=== PATIENT | female | born 1940 | race Caucasian/White ===

== ENCOUNTER 2016-11-30 09:42 | Observation (INO) ==
--- NOTE | 2016-11-30 09:55 | Emergency Department Note ---
Disposition Clinical Impression: Biliary colic, Acalculous cholecystitis Abdominal pain Qualifiers: Abdominal location: right upper quadrant Qualified Code(s): R10.11 - Right upper quadrant pain Disposition: Admitted As Inpatient Condition: Fair Time of Disposition: 13:44 Abdominal Pain HPI - General Chief Complaint: ED Abdominal Pain Stated Complaint: RLQ Pain Time Seen by Provider: 11/30/16 09:47 Source: patient, family Nursing Notes Reviewed: Yes Vital Signs Reviewed: Yes - History of Present Illness HPI Narrative: Patient is a 76-year-old female who presents to [facility] ED with a chief complaint of right upper quadrant abdominal pain. States her symptoms started around 5 AM this morning. She did have an episode of nausea with vomiting this morning. States she has not had anything to eat yet. No history of problems with her gallbladder though she states she is only one in her family with one still. Denies any fevers or chills. No chest pain, shortness of breath, problems with urination or bowel movements. Past medical history significant for atrial fibrillation on xarelto, hypertension, hyperlipidemia. Pt Subjective Complaint: abdominal pain Onset (ago): hour(s) Consistency: constant Location: RUQ Pain Severity: severe Pain Scale: 9 Quality: stabbing, aching Radiation: none Migration to: no migration Improves with: nothing Worsens with: nothing Associated symptoms: Reports: nausea, vomiting. Denies: fever, chills, constipation, dysuria Treatments prior to arrival: none - Related Data Home Medications Medication Instructions Recorded Confirmed Fenofibrate,Micronized 134 mg PO DAILY 11/18/16 11/30/16 [Fenofibrate] Insulin Glargine,Hum.rec.anlog 10 - 20 unit SQ HS 11/18/16 11/30/16 [Lantus Solostar] Sitagliptin Phos/Metformin HCl 1 tab PO BID 11/18/16 11/30/16 [Janumet Xr 50-1,000 mg Tablet] Levothyroxine [Levothyroxine 137 mcg PO DAILY 11/30/16 11/30/16 Sodium] Magnesium 750 mg PO HS 11/30/16 11/30/16 Rivaroxaban [Xarelto] 20 mg PO DAILY 11/30/16 11/30/16 Previous Rx's Medication Instructions Recorded Diltiazem CD (24hr) [Cardizem CD] 120 mg PO DAILY #30 cap.er.24h 11/19/16 Furosemide [Lasix] 20 mg PO DAILY #30 tablet 11/19/16 Gabapentin [Neurontin] 300 mg PO HS #30 capsule 11/19/16 Metoprolol XL (24 HR) Succ [Toprol 100 mg PO DAILY #60 tab.er.24h 11/19/16 Xl] Allergies Allergy/AdvReac Type Severity Reaction Status Date / Time Oxycodone Allergy Rash Verified 11/18/16 10:07 rosuvastatin [From Crestor] AdvReac Muscle Pain Verified 11/18/16 10:07 All systems ED: reviewed and negative except as stated. Abdominal Pain PMH - Past Medical History Medical history: Reports: atrial fibrillation, CHF, diabetes, hyperlipidemia, hypertension, other Female Surgical History: Reports: appendectomy, hip replacement, hysterectomy Psychiatric history: Reports: no psych history - Social History Smoking status: Never smoker Alcohol use: Reports: none Drug use: Reports: none Physical Exam - General Limitations: no limitations General appearance: alert, in no apparent distress - Head Head exam: atraumatic, normocephalic, normal inspection - Eye Eye exam: Present: normal appearance, PERRL, EOMI - ENT ENT exam: normal exam, normal oropharynx, mucous membranes moist - Neck Neck exam: Present: normal inspection, full ROM, trachea midline - Chest Chest inspection: Present: normal inspection, symmetric chest wall rise - Respiratory Respiratory exam: Present: normal lung sounds bilaterally - Cardiovascular Cardiovascular exam: Present: regular rate, normal rhythm, normal heart sounds - Abdominal Exam Abdominal exam: Present: soft, tenderness, normal bowel sounds, Gramajo's sign. Absent: distention, guarding, rebound, rigidity Abdominal tenderness: Present: RUQ, diffuse - Extremities Exam Extremities exam: Present: normal inspection, full ROM. Absent: tenderness, pedal edema - Back Exam Back exam: Present: normal inspection, full ROM. Absent: tenderness - Neurological Exam Neurological exam: Present: alert, oriented X3 - Psychiatric Psychiatric exam: Present: normal affect, normal mood - Skin Skin exam: Present: warm, dry, intact, normal color Course Course Narrative: Patient seen and examined. Right upper quadrant abdominal pain since this morning. Bedside ultrasound shows a distended gallbladder though no signs of stones, wall thickness or pericholecystic fluid. Patient had a positive Gramajo' s sign. Will get abdominal labs, CT abdomen and pelvis with IV contrast, pain control with IV Dilaudid and IV Zofran for nausea control. - Reevaluation(s) Reevaluation #1: Patient states she is feeling much better. Her lab work does show a mild leukocytosis with a left shift as well as some elevated liver function tests. Her CAT scan does not show any signs of acute cholecystitis. However since she did have a positive Gramajo sign and clinical suspicion for acute cholecystitis, we will go ahead and order a gallbladder ultrasound. Time: 11:59 Reevaluation #2: Gallbladder ultrasound does show wall thickening up to 8 mm as well as some sludge. They had a negative Gramajo sign. Due to patient's clinical symptoms as well as these ultrasound findings and lab work which shows mildly elevated white count with shift and mildly elevated LFTs, there is concern that this is developing into an acute cholecystitis. I spoke with the surgeon Dr. Aguilar who states he will consult on the patient but would like hospitalist to call him as well. Patient is currently anticoagulated on xarelto so this will need to be addressed prior to him thinking about operating on her. He would also like coags ordered. I spoke with hospitalist Dr. Lanier who has accepted patient for admission. Time: 13:44 Vital Signs Temperature 96.6 F L 11/30/16 09:43 Pulse Rate 76 11/30/16 09:43 Respiratory Rate 18 11/30/16 09:43 Blood Pressure 185/87 11/30/16 09:43 O2 Sat by Pulse Oximetry 98 11/30/16 09:43 Temperature 96.6 F L 11/30/16 09:43 Pulse Rate 67 11/30/16 13:05 Respiratory Rate 14 11/30/16 14:00 Blood Pressure 165/67 11/30/16 14:00 O2 Sat by Pulse Oximetry 97 11/30/16 13:05 Oxygen Delivery Oxygen Delivery Room Air Abdominal Pain - Medical Records Medical records reviewed: Yes I reviewed the patient's medical records. - Lab Data Lab results reviewed: Yes I reviewed the patient's lab results. Result diagrams: 11/30/16 10:24 11/30/16 10:24 Lab Results 11/30/16 11/30/16 11/30/16 Range/Units 10:24 10:24 10:24 WBC 11.5 H (4.3-11.1) K/mcL RBC 4.39 (3.82-4.97) M/mcL Hgb 13.1 (11.5-15.4) g/dL Hct 41.1 (35.3-44.9) % MCV 93.6 (83.0-100.0) fL MCH 29.8 (28.0-33.3) pg MCHC 31.9 (31.6-35.5) g/dL RDW 14.2 (11.5-14.5) % Plt Count 264 (140-400) K/mcL MPV 11.0 (9.4-12.4) fL Immature Gran % 0.5 (0-4) % Seg Neutrophils % 87.1 % Lymphocytes % 6.6 % Monocytes % 4.3 % Eosinophils % 1.1 % Basophils % 0.4 % Neutrophils # 10.0 H (1.6-8.9) K/mcL Lymphocytes # 0.8 (0.6-4.6) K/mcL Monocytes # 0.5 (0.0-1.3) K/mcL Eosinophils # 0.1 (0.0-0.6) K/mcL Basophils # 0.1 (0.0-0.2) K/mcL Immature Plt Fraction 6.0 (1.1-6.1) % PT (9.4-12.1) Seconds INR APTT (26.0-36.0) Seconds Sodium 139 (136-145) mEq/L Potassium 4.6 H (3.5-4.5) mEq/L Chloride 103 (98-109) mEq/L Carbon Dioxide 25 (19-29) mEq/L BUN 22 H (7-20) mg/dL Creatinine 0.91 (0.57-1.11) mg/dL Est GFR ( Amer) > 60 (> 60) Est GFR (Non-Af Amer) > 60 (> 60) BUN/Creatinine Ratio 24 (6-26) Glucose 187 H (70-99) mg/dL Calculated Osmolality 296 (280-300) Lactic Acid 1.8 (0.5-2.2) mmol/L Calcium 9.7 (8.6-10.8) mg/dL Total Bilirubin 1.3 H (0.2-1.2) mg/dL Direct Bilirubin 0.7 H (0.0-0.5) mg/dL Indirect Bilirubin 0.6 (0.0-1.2) mg/dL AST 159 H (5-34) Units/L ALT 72 H (0-55) Units/L Alkaline Phosphatase 94 (38-126) Units/L Serum Total Protein 7.8 (6.0-8.3) g/dL Albumin 4.0 (3.5-5.0) g/dL Globulin 3.8 H (2.4-3.5) g/dL Albumin/Globulin Ratio 1.1 (1.1-2.2) Lipase 59 (8-78) Units/L Urine Color (Yellow) Urine Clarity (Clear) Urine pH (5.0-8.0) pH Units Ur Specific [place] (1.010-1.025) Urine Protein (Neg-Trace) mg/dL Urine Glucose (UA) (Normal) mg/dL Urine Ketones (Negative) mg/dL Urine Blood (Negative) Urine Nitrite (Negative) Urine Bilirubin (Negative) Urine Urobilinogen (Normal) mg/dL Ur Leukocyte Esterase (Negative) Urine Microscopic RBC (0-3) per hpf Urine Microscopic WBC (0-3) per hpf Ur Squamous Epith Cells (None-Few) per lpf Urine Bacteria (None-Few) per hpf Hyaline Casts (None-Few) per lpf Ur Culture Indicated? (NO) 11/30/16 11/30/16 Range/Units 10:24 11:20 WBC (4.3-11.1) K/mcL RBC (3.82-4.97) M/mcL Hgb (11.5-15.4) g/dL Hct (35.3-44.9) % MCV (83.0-100.0) fL MCH (28.0-33.3) pg MCHC (31.6-35.5) g/dL RDW (11.5-14.5) % Plt Count (140-400) K/mcL MPV (9.4-12.4) fL Immature Gran % (0-4) % Seg Neutrophils % % Lymphocytes % % Monocytes % % Eosinophils % % Basophils % % Neutrophils # (1.6-8.9) K/mcL Lymphocytes # (0.6-4.6) K/mcL Monocytes # (0.0-1.3) K/mcL Eosinophils # (0.0-0.6) K/mcL Basophils # (0.0-0.2) K/mcL Immature Plt Fraction (1.1-6.1) % PT 17.8 H (9.4-12.1) Seconds INR 1.6 APTT 34.8 (26.0-36.0) Seconds Sodium (136-145) mEq/L Potassium (3.5-4.5) mEq/L Chloride (98-109) mEq/L Carbon Dioxide (19-29) mEq/L BUN (7-20) mg/dL Creatinine (0.57-1.11) mg/dL Est GFR ( Amer) (> 60) Est GFR (Non-Af Amer) (> 60) BUN/Creatinine Ratio (6-26) Glucose (70-99) mg/dL Calculated Osmolality (280-300) Lactic Acid (0.5-2.2) mmol/L Calcium (8.6-10.8) mg/dL Total Bilirubin (0.2-1.2) mg/dL Direct Bilirubin (0.0-0.5) mg/dL Indirect Bilirubin (0.0-1.2) mg/dL AST (5-34) Units/L ALT (0-55) Units/L Alkaline Phosphatase (38-126) Units/L Serum Total Protein (6.0-8.3) g/dL Albumin (3.5-5.0) g/dL Globulin (2.4-3.5) g/dL Albumin/Globulin Ratio (1.1-2.2) Lipase (8-78) Units/L Urine Color Yellow (Yellow) Urine Clarity Clear (Clear) Urine pH 7.0 (5.0-8.0) pH Units Ur Specific [place] 1.022 (1.010-1.025) Urine Protein >=300 H (Neg-Trace) mg/dL Urine Glucose (UA) Normal (Normal) mg/dL Urine Ketones Negative (Negative) mg/dL Urine Blood Negative (Negative) Urine Nitrite Negative (Negative) Urine Bilirubin Negative (Negative) Urine Urobilinogen Normal (Normal) mg/dL Ur Leukocyte Esterase Negative (Negative) Urine Microscopic RBC 0-3 (0-3) per hpf Urine Microscopic WBC 0-3 (0-3) per hpf Ur Squamous Epith Cells Many H (None-Few) per lpf Urine Bacteria None Seen (None-Few) per hpf Hyaline Casts None Seen (None-Few) per lpf Ur Culture Indicated? NO (NO) - Radiology Data Radiology results reviewed: Yes I reviewed the patient's radiology results. Attestation Statement - Attestation Attestation: Patient was seen with resident physician. I reviewed the history, physical, assessment and plan, and agree with the findings. I also personally evaluated this patient and had [id number] time with this patient. 76-year-old female who presents to the emergency department with acute onset of right upper quadrant abdominal pain since 5 AM this morning. It woke her from sleep as dull in nature and is nonradiating. Patient states she has not had anything like this before. Mild nausea with no vomiting or diarrhea. Denies other symptoms at this time. On examination heart and lungs are both normal. Abdomen is soft there is no guarding or rigidity, she is tender in the right upper quadrant and slightly in the midepigastric area. The right lower quadrant is not tender to my examination. Extremity exam is unremarkable. We will do workup for potential gallbladder disease to include labs CT scan and will treat patient's pain with analgesics. Patient felt better with pain medication, but ultrasound showed gallbladder wall thickening with some sludge. Initially she did have a positive Gramajo's, though this settled down with pain medication we discussed with surgery bringing in the patient, he suggests admission to medicine for management of her A. fib and anticoagulation, and that he would consult for surgical intervention as needed. This was conveyed to the hospitalist will admit to the hospital for pain management of abdominal pain. Agree with resident physician assessment and plan.
[2016-11-30] MEDS ORDERED: Ondansetron 4 MG/2 ML VIAL IVP ONE (10:00)
[2016-11-30] MEDS ORDERED: *HR* HYDROmorphone (PF) 1 MG/ML SYRINGE IVP ONE (10:00)
[2016-11-30] MEDS ORDERED: 0.9 % Sodium Chloride 1,000 ML IVC ONE (10:00)
[2016-11-30 10:34] LABS: Basophils # 0.1 K/mcL (0.0-0.2); Basophils % 0.4 %; Eosinophils # 0.1 K/mcL (0.0-0.6); Eosinophils % 1.1 %; Hematocrit 41.1 % (35.3-44.9); Hemoglobin 13.1 g/dL (11.5-15.4); Immature Granulocytes % 0.5 % (0-4); Lymphocytes # 0.8 K/mcL (0.6-4.6); Lymphocytes % 6.6 %; Mean Corpuscular HGB Conc 31.9 g/dL (31.6-35.5); Mean Corpuscular Hemoglobin 29.8 pg (28.0-33.3); Mean Corpuscular Volume 93.6 fL (83.0-100.0); Monocytes # 0.5 K/mcL (0.0-1.3); Monocytes % 4.3 %; Platelet Count 264 K/mcL (140-400); Red Blood Count 4.39 M/mcL (3.82-4.97); Red Cell Distribution Width 14.2 % (11.5-14.5); Segmented Neutrophils % 87.1 %
[2016-11-30 10:47] LABS: Alanine Aminotransferase 72 Units/L (0-55); Albumin/Globulin Ratio 1.1 (1.1-2.2); Alkaline Phosphatase 94 Units/L (38-126); Aspartate Amino Transferase 159 Units/L (5-34); BUN/Creatinine Ratio 24 (6-26); Bilirubin,Direct 0.7 mg/dL (0.0-0.5); Bilirubin,Indirect 0.6 mg/dL (0.0-1.2); Bilirubin,Total 1.3 mg/dL (0.2-1.2); Blood Urea Nitrogen 22 mg/dL (7-20); Calcium 9.7 mg/dL (8.6-10.8); Carbon Dioxide 25 mEq/L (19-29); Chloride 103 mEq/L (98-109); Globulin 3.8 g/dL (2.4-3.5); Glucose 187 mg/dL (70-99); Lipase 59 Units/L (8-78); Osmolality,Calculated 296 (280-300); Potassium 4.6 mEq/L (3.5-4.5); Sodium 139 mEq/L (136-145); Total Protein 7.8 g/dL (6.0-8.3); eGFR For African Americans > 60 (> 60); eGFR For Non-African Americans > 60 (> 60)
[2016-11-30 11:33] LABS: Bilirubin,Urine Negative (Negative); Blood,Urine Negative (Negative); Clarity,Urine Clear (Clear); Color,Urine Yellow (Yellow); Glucose,Urine (UA) Normal (Normal); Ketones,Urine Negative (Negative); Leukocyte Esterase,Urine Negative (Negative); Nitrite,Urine Negative (Negative); Protein,Urine >=300 mg/dL (Neg-Trace); Specific Gravity,Urine 1.022 (1.010-1.025); Urobilinogen,Urine Normal (Normal)
[2016-11-30 11:36] LABS: Bacteria,Urine None Seen per hpf (None-Few); Hyaline Casts,Urine None Seen per lpf (None-Few); RBC,Urine 0-3 per hpf (0-3); Squamous Epithelial Cell,Urine Many per lpf (None-Few); WBC,Urine 0-3 per hpf (0-3)
[2016-11-30 13:30] LABS: INR 1.6; Prothrombin Time 17.8 Seconds (9.4-12.1)
[2016-11-30 13:33] LABS: Activated Partial Thrombo Time 34.8 Seconds (26.0-36.0)
[2016-11-30] MEDS ORDERED: Acetaminophen 325 MG TABLET PO PRN (15:29)
[2016-11-30] MEDS ORDERED: Ondansetron 4 MG/2 ML VIAL IVP PRN (15:29)
[2016-11-30] MEDS ORDERED: Naloxone 0.4 MG/ML INJ IVP PRN (15:29)
[2016-11-30] MEDS ORDERED: *HR* Morphine 2 MG/ML SYRINGE IVP PRN (15:29)
[2016-11-30] MEDS ORDERED: Dextrose Gel 15 GM PO PRN ×2 (15:32)
[2016-11-30] MEDS ORDERED: D5% in Water 1,000 ML IV PRN (15:32)
[2016-11-30] MEDS ORDERED: *HR* Dextrose 50 % in Water (Syg) 50 ML SYRINGE IVP PRN (15:32)
--- NOTE | 2016-11-30 15:34 | Internal Med History&Physical ---
Date of Encounter: 11/30/16 Time of Encounter: 15:00 Assessment and Plan (1) Acalculous cholecystitis Current visit: Yes Status: Acute Patient presents with right upper quadrant abdominal pain. CT abdomen/pelvis shows no acute abnormality. Right upper quadrant ultrasound shows gallbladder sludge with no clear gallstones but with gallbladder wall thickening. Surgery consulted by ER physician, will f/up recommendations. Keep NPO for now, pain control with PRN IV Morphine and PRN antiemetics. Case d/w Cardiology and agree with holding Xarelto for possible cholecystectomy for 24hours and restarting post surgery; (2) Essential hypertension Current visit: Yes Status: Chronic BP well-controlled; resume home meds; (3) CHF (congestive heart failure) Current visit: Yes Status: Chronic resume home meds; not in acute exacerbation; Qualifiers: Congestive heart failure type: diastolic Congestive heart failure chronicity: chronic Qualified Code(s): I50.32 - Chronic diastolic (congestive ) heart failure (4) Type 2 diabetes mellitus treated with insulin Current visit: Yes Status: Chronic Accucheck blood glucose monitoring with sliding scale insulin; (5) Hypothyroidism Current visit: Yes Status: Chronic resume Levothyroxine; Qualifiers: Hypothyroidism type: acquired Qualified Code(s): E03.9 - Hypothyroidism, unspecified Internal Medicine - H&P: HPI Chief complaint: Abdominal pain Admitted From: Emergency Dept Plans for Post Hospital Care: Home History of present illness: Ms. Rehman is a 76 year old female with history of hypertension, diabetes, atrial fibrillation, presents with complaints of abdominal pain. Patient reports sudden onset of right upper quadrant abdominal pain, associated with nausea and nonbloody, bilious vomiting that woke her up from sleep this morning. Her pain was 10/10 in intensity and nonradiating, dull aching abdominal pain. No prior similar episodes. She gives no history of right- sided colicky abdominal pain after eating greasy or fatty foods. No history of gallstones. No fever, chills, shortness of breath. Her abdominal pain is currently resolved with a dose of IV Dilaudid that she received in the emergency room. Past Med Surg Social Fam HX - Past Medical History Medical history: atrial fibrillation, CHF (Diastolic CHF), diabetes, hyperlipidemia, hypertension, thyroid disease, other Psychiatric history: no psych history - Past Surgical History Surgical History: appendectomy, hip replacement, hysterectomy - Social History Smoking Status: Never smoker Smokeless Tobacco Status: No Alcohol use: none Drug use: none Occupational status: retired Current living situation: Home, With Family Activity Level: Independent ambulation Recent Out of Country Travel Within the Last 8 Weeks: No Exposure or Possible Exposure to Illness During Travel: No - Family History Mother Living Status: Hx Family Endocrine Disorder: Yes (hypothyroidism) Father Living Status: Internal Medicine - H&P: Meds Fenofibrate,Micronized [Fenofibrate] 134 mg PO DAILY 11/18/16 [History] Insulin Glargine,Hum.rec.anlog [Lantus Solostar] 10 - 20 unit SQ HS 11/18/16 [ History] Sitagliptin Phos/Metformin HCl [Janumet Xr 50-1,000 mg Tablet] 1 tab PO BID [History] Diltiazem CD (24hr) [Cardizem CD] 120 mg PO DAILY #30 cap.er.24h 11/19/16 [Rx] Furosemide [Lasix] 20 mg PO DAILY #30 tablet 11/19/16 [Rx] Gabapentin [Neurontin] 300 mg PO HS #30 capsule 11/19/16 [Rx] Metoprolol XL (24 HR) Succ [Toprol Xl] 100 mg PO DAILY #60 tab.er.24h 11/19/16 [ Rx] Levothyroxine [Levothyroxine Sodium] 137 mcg PO DAILY 11/30/16 [History] Magnesium 750 mg PO HS 11/30/16 [History] Rivaroxaban [Xarelto] 20 mg PO DAILY 11/30/16 [History] Allergies Oxycodone Allergy (Verified 11/18/16 10:07) Rash rosuvastatin [From Crestor] Adverse Reaction (Verified 11/18/16 10:07) Muscle Pain All Systems PM: A 10-system review of systems was performed and is negative for pertinent findings except as documented above in the HPI. - Constitutional Constitutional: no chills, no fever(s), no night sweats - EENT Eyes: no change in vision, no discharge, no pain, no photophobia Ears: no ear discharge, no ear pain, no tinnitus Nose, mouth and throat: no dysphagia, no nasal discharge, no neck pain, no sore throat - Cardiovascular Cardiovascular ROS IM: no chest pain, no diaphoresis, no dyspnea, no lightheadedness, no palpitations, no syncope - Respiratory Respiratory: no cough, no dyspnea, no wheezing, no excessive phlegm production - Gastrointestinal Gastrointestinal: abdominal pain, nausea, vomiting - Genitourinary Genitourinary: no change in urinary stream, no dysuria, no flank pain, no hematuria - Musculoskeletal Musculoskeletal ROS IM: no numbness, no tingling - Integumentary Integumentary IM: no rash, no unusual bruising - Neurological Neurological ROS: no confusion, no convulsions, no focal weakness, no numbness, no tingling, no tremor(s) - Hematologic/Lymphatic Hematologic/Lymphatic: no easy bruising - Constitutional Vitals: Temp Pulse Resp BP Pulse Ox 98.8 F 72 18 171/94 94 L 11/30/16 15:24 11/30/16 15:24 11/30/16 15:24 11/30/16 15:24 11/30/16 15:24 General appearance: Present: A&O X 3, obese, answers questions appropriately - Head Head exam: Present: atraumatic, normocephalic - Neck Neck exam general surgery: Present: supple, trachea midline. Absent: lymphadenopathy - Respiratory Respiratory exam: Present: CTAB. Absent: accessory muscle use, rales, rhonchi, wheezes - Cardiovascular Cardiovascular exam: Present: irregular rhythm, +S1, +S2. Absent: diastolic murmur, gallop, rubs, systolic murmur - GI/Abdominal GI/Abdominal exam: Present: normal bowel sounds, soft (Nondistended, nontender at this time), no peritoneal signs. Absent: distended, tenderness - Extremities Exam Extremities exam: Present: full ROM, pedal edema (2+ pitting pedal edema bilaterally), warm, radial pulses palpable and symetrical. Absent: calf tenderness, cyanotic - Neurological Exam Neurological exam: Present: CN II-XII intact, oriented X3, no focal deficits. Absent: pronater drift, facial droop, speech deficit - Skin Skin exam: Present: dry, intact Internal Med - H&P Results - Labs CBC & Chem 7: 12/01/16 03:19 12/01/16 03:19
[2016-11-30] MEDS: D5% in 0.45% NACL 1,000 ML IVC SCH (17:01)
[2016-11-30] MEDS: Insulin LISPRO 300 UNITS/3 ML VIAL SQ SCH ×2 (17:33→23:19)
[2016-11-30] MEDS: Gabapentin 300 MG CAPSULE PO SCH (20:52)
[2016-11-30] MEDS: Insulin DETEMIR 100 UNIT/ML X5UNITS SQ SCH (21:09)
[2016-12-01 03:29] LABS: Basophils # 0.1 K/mcL (0.0-0.2); Basophils % 0.7 %; Eosinophils # 0.3 K/mcL (0.0-0.6); Eosinophils % 4.4 %; Hematocrit 34.9 % (35.3-44.9); Immature Granulocytes % 0.4 % (0-4); Lymphocytes # 1.1 K/mcL (0.6-4.6); Lymphocytes % 16.3 %; Mean Corpuscular HGB Conc 32.4 g/dL (31.6-35.5); Mean Corpuscular Hemoglobin 30.2 pg (28.0-33.3); Mean Corpuscular Volume 93.3 fL (83.0-100.0); Mean Platelet Volume 10.8 fL (9.4-12.4); Monocytes # 0.6 K/mcL (0.0-1.3); Monocytes % 8.7 %; Neutrophils # 4.8 K/mcL (1.6-8.9); Platelet Count 248 K/mcL (140-400); Red Blood Count 3.74 M/mcL (3.82-4.97); Red Cell Distribution Width 14.2 % (11.5-14.5); Segmented Neutrophils % 69.5 %
[2016-12-01 03:30] LABS: Hemoglobin 11.3 g/dL (11.5-15.4)
[2016-12-01 03:36] LABS: INR 1.3; Prothrombin Time 13.6 Seconds (9.4-12.1)
[2016-12-01 03:39] LABS: Activated Partial Thrombo Time 30.5 Seconds (26.0-36.0)
[2016-12-01 03:40] LABS: BUN/Creatinine Ratio 18 (6-26); Blood Urea Nitrogen 13 mg/dL (7-20); Calcium 8.9 mg/dL (8.6-10.8); Carbon Dioxide 25 mEq/L (19-29); Chloride 107 mEq/L (98-109); Glucose 127 mg/dL (70-99); Osmolality,Calculated 292 (280-300); Sodium 140 mEq/L (136-145); eGFR For African Americans > 60 (> 60); eGFR For Non-African Americans > 60 (> 60)
[2016-12-01 03:43] LABS: Potassium 3.5 mEq/L (3.5-4.5)
[2016-12-01] MEDS: Insulin LISPRO 300 UNITS/3 ML VIAL SQ SCH ×3 (05:38→17:38)
[2016-12-01] MEDS: Metoprolol XL (24 HR) Succ 50 MG TAB.ER.24H PO SCH (07:50)
[2016-12-01] MEDS: Fenofibrate 54 MG TABLET PO SCH (07:50)
[2016-12-01] MEDS: Diltiazem CD (24hr) 120 MG CAPSULE PO SCH (07:50)
[2016-12-01] MEDS: D5% in 0.45% NACL 1,000 ML IVC SCH (07:51)
[2016-12-01] MEDS: Pantoprazole 40 MG VIAL IVP SCH (07:51)
--- NOTE | 2016-12-01 10:06 | Internal Med Progress Note ---
Date of Encounter: 12/01/16 Time of Encounter: 10:03 - Assessment and plan (1) Acalculous cholecystitis Status: Acute Assessment and plan: resolved abdominal pain; case d/w surgery; since RUQ ultrasound did not confirm acute cholecystitis and gallstones, recommend resuming diet; consider NM biliary scan as inpatient if symptoms recur; supportive care with PRN antiemetics and analgesics; (2) Essential hypertension Status: Chronic Assessment and plan: BP well-controlled; resume home meds; (3) CHF (congestive heart failure) Status: Chronic Qualifiers: Congestive heart failure type: diastolic Congestive heart failure chronicity: chronic Qualified Code(s): I50.32 - Chronic diastolic (congestive ) heart failure (4) Type 2 diabetes mellitus treated with insulin Status: Chronic Assessment and plan: Accucheck blood glucose monitoring shows well-controlled blood sugars; continue SSI; diabetic diet; (5) Hypothyroidism Status: Chronic Qualifiers: Hypothyroidism type: acquired Qualified Code(s): E03.9 - Hypothyroidism, unspecified (6) Atrial fibrillation Status: Chronic Assessment and plan: resume Xarelto as no surgery for now; continue beta-renny; Qualifiers: Atrial fibrillation type: paroxysmal Qualified Code(s): I48.0 - Paroxysmal atrial fibrillation - Subjective Interval history: Denies further abdominal pain since admission, no nausea, vomiting, diarrhea; has flatus; - Constitutional Vitals: Temp Pulse Resp BP Pulse Ox 97.9 F 81 16 138/77 95 12/01/16 07:07 12/01/16 07:07 12/01/16 07:07 12/01/16 07:07 12/01/16 07:07 General appearance: Present: A&O X 3, answers questions appropriately - Head Head exam: Present: atraumatic, normocephalic - Neck Neck exam general surgery: Present: supple, trachea midline. Absent: lymphadenopathy - Respiratory Respiratory exam: Present: CTAB. Absent: accessory muscle use, rales, rhonchi, wheezes - Cardiovascular Cardiovascular exam: Present: irregular rhythm, +S1, +S2. Absent: diastolic murmur, gallop, rubs, systolic murmur - GI/Abdominal GI/Abdominal exam: Present: normal bowel sounds, soft (nontender, nondistended) , no peritoneal signs. Absent: distended, tenderness - Extremities Exam Extremities exam: Present: full ROM, pedal edema (1+ pitting pedal edema B/L), warm, radial pulses palpable and symetrical. Absent: calf tenderness, cyanotic - Neurological Exam Neurological exam: Present: CN II-XII intact, oriented X3, no focal deficits. Absent: pronater drift, facial droop, speech deficit - Skin Skin exam: Present: dry, intact Internal Medicine: Result - Labs CBC & Chem 7: 12/01/16 03:19 12/01/16 03:19 Labs: Short CBC 12/01/16 Range/Units 03:19 WBC 6.9 (4.3-11.1) K/mcL Hgb 11.3 L D (11.5-15.4) g/dL Hct 34.9 L (35.3-44.9) % Plt Count 248 (140-400) K/mcL Neutrophils # 4.8 (1.6-8.9) K/mcL BMP 12/01/16 03:19 Sodium 140 Potassium 3.5 D Chloride 107 Carbon Dioxide 25 BUN 13 Creatinine 0.71 Glucose 127 H Calcium 8.9 - ABG Interpretation ABG results: PT/INR, D-dimer PT 13.6 Seconds (9.4-12.1) H 12/01/16 03:19 Consult Discharge Plan - Plan Instructions: Biliary Colic (GEN) Additional Instructions: F/up with as scheduled, today at 2.45PM F/up with in 2-3 weeks Nuclear medicine biliary scan in 2-3 weeks Referrals: Pablito Hidalgo MD [Primary Care Provider] - 12/09/16 10:15 am
--- NOTE | 2016-12-01 11:52 | General Surgery Consult Note ---
Date of Encounter: 12/01/16 Time of Encounter: 11:13 History of Present Illness Reason for consult: abdominal pain Requesting physician: Minna Lanier History of present illness: A 76-year-old referred to surgical services after presenting to [facility] ED with right upper quadrant abdominal pain. The symptoms started abruptly around 0500 hrs. The pain was characterized as quite severe with associated N/V prompting the patient to present to the emergency department for further evaluation. Surgery was consulted for gallbladder disease. CT of the abdomen and pelvis demonstrated some cystic changes in the region of the body which are considered new compared with the previous evaluation, 2006. Minimal diverticulosis without diverticulitis was also demonstrated. No acute findings were noted on CT. Ultrasound of gallbladder demonstrated increased echogenicity of the liver consistent with fatty infiltration, no intrahepatic biliary dilatation, no gallstones. "Sludge" is described along with gallbladder wall thickening measuring up to 8.4 mm. No sonographic Gramajo sign was identified. Since admission, her acute symptoms have completely resolved. The patient is completely asymptomatic at this time. Past medical history: Chronic atrial fibrillation with anticoagulation using 0 silk; hypertension, hyperlipidemia, diabetes mellitus with neuropathy, an episode of acute diastolic CHF in October 2016. Allergies: oxycodone, rosuvastatin Medications: Fenofibrate 134 mg by mouth daily Insulin, glargine, 10-20 units subcutaneous daily at bedtime Sitagliptin/Meformin milligrams 1 by mouth twice a day Levothyroxine 137 g by mouth daily Magnesium 750 mg by mouth daily at bedtime Rivaroxaban 20 mg by mouth daily Surgical history: Hysterectomy, appendectomy Social history: , lives with her spouse; never smoker; denies alcohol or illicit drug use. Physical examination reveals an age-appropriate, female in no acute distress. Skin is warm, dry without obvious jaundice The patient has been afebrile since admission; pulse 71, respirations 16, blood pressure 160/87; SPO2 on room air 95% Lungs: Clear to auscultation, no abdominal pain with deep inspiration Cardiac: Rate was controlled, ranging 71-88; there were no appreciable murmurs Abdomen: Soft, nontender. No obvious intra-abdominal masses, no rebound. Extremities: no obvious clubbing cyanosis or edema Laboratories: The leukocytosis on admission, 11.5, has corrected; 6.9 currently. Hemoglobin and hematocrit had fallen to 11.3 and 34.9 in response to IV fluids (hydration) PT/INR on admission 17.8/1.6; currently 13.6/1.3 Electrolytes are stable and within normal limits; potassium is borderline at 3.5. BUN was elevated on admission, 22; has corrected to 13 with IV fluids. Creatinine is currently 0.71. On admission the patient had abnormal LFTs including a bilirubin of 1.3; AST 159, ALT 72. These were not repeated. CT and ultrasound were personally reviewed with [facility]. Impression/Plan: 76-year-old female admitted after presenting to [facility] ED with right upper quadrant bowel pain, nausea and vomiting. The exam and laboratories were suggestive of hepatobiliary disease but this was not corroborated radiographically. The presence of "sludge" is not necessarily an indication for surgery. Wall thickening described by sonogram may be an erroneous finding as multiple sonograms describe thickened GB wall, with no such findings at the time of cholecystectomy. With resolution of the acute symptoms, further evaluatiion is needed to verify that the symptoms leading to patient's ED presentation and admision are truly hepatobiliary in nature. An Hb scan with cholecystokinin can be obtained during this hospital stay if the patient experiences recurrent symptoms with initiation of diet. The study can be obtained as outpatient if the patient remains asymtomatic. Recommendation: allow diet, if no recurrent symptoms, patient may be discharged home to follow up with me as an outpatient in my office later in the week. If patient discharged, resume Xarelto. If symptoms recur, obtain hepatobiliary scan with cholecystokinin in a.m. Patient has an outpatient appointment with cardiology, Dr Pacheco, tomorrow afternoon. This appointment should be maintained if patient discharged. Past Med Surg Social Fam HX - Past Medical History Medical history: atrial fibrillation, CHF, diabetes, hyperlipidemia, hypertension, other Psychiatric history: no psych history - Past Surgical History Surgical History: appendectomy, hip replacement, hysterectomy - Social History Smoking Status: Never smoker Smokeless Tobacco Status: No Alcohol use: none Drug use: none - Family History Mother Living Status: Hx Family Endocrine Disorder: Yes (hypothyroidism) Father Living Status: Medications and Allergies Fenofibrate,Micronized [Fenofibrate] 134 mg PO DAILY 11/18/16 [History] Insulin Glargine,Hum.rec.anlog [Lantus Solostar] 10 - 20 unit SQ HS 11/18/16 [ History] Sitagliptin Phos/Metformin HCl [Janumet Xr 50-1,000 mg Tablet] 1 tab PO BID [History] Diltiazem CD (24hr) [Cardizem CD] 120 mg PO DAILY #30 cap.er.24h 11/19/16 [Rx] Furosemide [Lasix] 20 mg PO DAILY #30 tablet 11/19/16 [Rx] Gabapentin [Neurontin] 300 mg PO HS #30 capsule 11/19/16 [Rx] Metoprolol XL (24 HR) Succ [Toprol Xl] 100 mg PO DAILY #60 tab.er.24h 11/19/16 [ Rx] Levothyroxine [Levothyroxine Sodium] 137 mcg PO DAILY 11/30/16 [History] Magnesium 750 mg PO HS 11/30/16 [History] Rivaroxaban [Xarelto] 20 mg PO DAILY 11/30/16 [History] Allergies Oxycodone Allergy (Verified 11/18/16 10:07) Rash rosuvastatin [From Crestor] Adverse Reaction (Verified 11/18/16 10:07) Muscle Pain Review of Systems All systems PM: A 10-system review of systems was performed and is negative for pertinent findings except as documented above in the HPI. General Surgery Exam Initial Vital Signs Temp Pulse Resp BP Pulse Ox 96.6 F L 76 18 185/87 98 11/30/16 09:43 11/30/16 09:43 11/30/16 09:43 11/30/16 09:43 11/30/16 09:43 Exam Initial Vital Signs Temp Pulse Resp BP Pulse Ox 96.6 F L 76 18 185/87 98 11/30/16 09:43 11/30/16 09:43 11/30/16 09:43 11/30/16 09:43 11/30/16 09:43 Results - Labs 12/01/16 03:19 12/01/16 03:19 Abnormal lab results RBC 3.74 M/mcL (3.82-4.97) L 12/01/16 03:19 Hgb 11.3 g/dL (11.5-15.4) L D 12/01/16 03:19 Hct 34.9 % (35.3-44.9) L 12/01/16 03:19 PT 13.6 Seconds (9.4-12.1) H 12/01/16 03:19 Glucose 127 mg/dL (70-99) H 12/01/16 03:19 POC Glucose 120 (58-89) H 12/01/16 05:08 Total Bilirubin 1.3 mg/dL (0.2-1.2) H 11/30/16 10:24 Direct Bilirubin 0.7 mg/dL (0.0-0.5) H 11/30/16 10:24 AST 159 Units/L (5-34) H 11/30/16 10:24 ALT 72 Units/L (0-55) H 11/30/16 10:24 Globulin 3.8 g/dL (2.4-3.5) H 11/30/16 10:24 Urine Protein >=300 mg/dL (Neg-Trace) H 11/30/16 11:20 Ur Squamous Epith Cells Many per lpf (None-Few) H 11/30/16 11:20 Diabetes panel 12/01/16 Range/Units 03:19 Sodium 140 (136-145) mEq/L Potassium 3.5 D (3.5-4.5) mEq/L Chloride 107 (98-109) mEq/L Carbon Dioxide 25 (19-29) mEq/L BUN 13 (7-20) mg/dL Creatinine 0.71 (0.57-1.11) mg/dL Glucose 127 H (70-99) mg/dL Calcium 8.9 (8.6-10.8) mg/dL Calcium panel 12/01/16 Range/Units 03:19 Calcium 8.9 (8.6-10.8) mg/dL Pituitary panel 12/01/16 Range/Units 03:19 Sodium 140 (136-145) mEq/L Potassium 3.5 D (3.5-4.5) mEq/L Chloride 107 (98-109) mEq/L Carbon Dioxide 25 (19-29) mEq/L BUN 13 (7-20) mg/dL Creatinine 0.71 (0.57-1.11) mg/dL Glucose 127 H (70-99) mg/dL Calcium 8.9 (8.6-10.8) mg/dL Adrenal panel 12/01/16 Range/Units 03:19 Sodium 140 (136-145) mEq/L Potassium 3.5 D (3.5-4.5) mEq/L Chloride 107 (98-109) mEq/L Carbon Dioxide 25 (19-29) mEq/L BUN 13 (7-20) mg/dL Creatinine 0.71 (0.57-1.11) mg/dL Glucose 127 H (70-99) mg/dL Calcium 8.9 (8.6-10.8) mg/dL All other labs normal. Consult Discharge Plan - Plan Referrals: Pablito Hidalgo MD [Primary Care Provider] -
[2016-12-01] MEDS ORDERED: *HR* Rivaroxaban 10 MG TABLET PO SCH (17:30)
[2016-12-01] MEDS: Insulin DETEMIR 100 UNIT/ML X5UNITS SQ SCH (20:40)
[2016-12-01] MEDS: Gabapentin 300 MG CAPSULE PO SCH (20:41)
[2016-12-01] MEDS ORDERED: 0.9 % Sodium Chloride 1,000 ML IVC SCH (23:00)
[2016-12-02] MEDS ORDERED: Insulin LISPRO 300 UNITS/3 ML VIAL SQ SCH ×2 (07:30→21:00)
[2016-12-02] MEDS: Pantoprazole 40 MG VIAL IVP SCH (08:15)
[2016-12-02] MEDS: Fenofibrate 54 MG TABLET PO SCH (08:15)
[2016-12-02] MEDS: Metoprolol XL (24 HR) Succ 50 MG TAB.ER.24H PO SCH (08:15)
[2016-12-02] MEDS: Diltiazem CD (24hr) 120 MG CAPSULE PO SCH (08:15)
[2016-12-02 08:16] VITALS: BP 184/86
--- NOTE | 2016-12-02 09:16 | Discharge Summary ---
Date of Encounter: 12/02/16 Time of Encounter: 09:14 - Discharge Diagnosis (1) Acalculous cholecystitis Priority: Primary Status: Acute (2) Essential hypertension Priority: Secondary Status: Chronic (3) CHF (congestive heart failure) Priority: Secondary Status: Chronic Qualifiers: Congestive heart failure type: diastolic Congestive heart failure chronicity: chronic Qualified Code(s): I50.32 - Chronic diastolic (congestive ) heart failure (4) Type 2 diabetes mellitus treated with insulin Priority: Secondary Status: Chronic (5) Hypothyroidism Priority: Secondary Status: Chronic Qualifiers: Hypothyroidism type: acquired Qualified Code(s): E03.9 - Hypothyroidism, unspecified - Discharge Medications Home Medications: Fenofibrate,Micronized [Fenofibrate] 134 mg PO DAILY 11/18/16 [History] Insulin Glargine,Hum.rec.anlog [Lantus Solostar] 10 - 20 unit SQ HS 11/18/16 [ History] Sitagliptin Phos/Metformin HCl [Janumet Xr 50-1,000 mg Tablet] 1 tab PO BID [History] Diltiazem CD (24hr) [Cardizem CD] 120 mg PO DAILY #30 cap.er.24h 11/19/16 [Rx] Furosemide [Lasix] 20 mg PO DAILY #30 tablet 11/19/16 [Rx] Gabapentin [Neurontin] 300 mg PO HS #30 capsule 11/19/16 [Rx] Metoprolol XL (24 HR) Succ [Toprol Xl] 100 mg PO DAILY #60 tab.er.24h 11/19/16 [ Rx] Levothyroxine [Levothyroxine Sodium] 137 mcg PO DAILY 11/30/16 [History] Magnesium 750 mg PO HS 11/30/16 [History] Rivaroxaban [Xarelto] 20 mg PO DAILY 11/30/16 [History] Allergies/Adverse Reactions: Allergies Oxycodone Allergy (Verified 11/18/16 10:07) Rash rosuvastatin [From Crestor] Adverse Reaction (Verified 11/18/16 10:07) Muscle Pain Date of admission: 11/30/16 13:41 Primary care physician: Pablito Hidalgo MD Consults: 11/30/16 15:32 Consult to Surgery [CONS] Routine Consulting Provider: [facility] Reason for Consult: RUQ abdominal pain Call Completed: Yes Discharging clinician: Minna Lanier Anticipated date of discharge: 12/02/16 - Patient Status Disposition: Home, Self-Care Condition: Good Overall status at discharge: patient is back to baseline - Discharge Instructions Instructions: Biliary Colic (GEN) Follow Up With: Pablito Hidalgo MD [Primary Care Provider] - 12/09/16 10:15 am Additional Instructions: F/up with as scheduled, today at 2.45PM F/up with in 2-3 weeks Nuclear medicine biliary scan in 2-3 weeks - Diet and Activity Activity: resume usual activities as tolerated Diet: diabetic diet, low fat, low cholesterol, low salt diet Hospital course: Ms. Rehman is a 76 year old female admitted with sudden onset of severe right- sided abdominal pain. She was noted to have slightly elevated liver enzymes with no other metabolic abnormality on routine labs. CT abdomen/pelvis showed mild cirrhosis with no other acute abnormality. Gallbladder ultrasound showed bladder wall thickening with sludge, no clear evidence of gallstones, diffuse fatty infiltration of liver. Her pain was well controlled after receiving 1 dose of IV Dilaudid in the emergency room. She gradually could tolerate regular diet. Surgery was consulted for possible acalculous cholecystitis, however this was thought to be of a very low probability as patient's pain is completely resolved. Nuclear medicine biliary scan as an inpatient was recommended in the event of recurrence but otherwise patient is medically stable for discharge with outpatient surgery follow-up. - Time Spent with Patient Total time spent providing and/or coordinating discharge services: Greater than 30 minutes (45 min) - Constitutional Vitals: Temp Pulse Resp BP Pulse Ox 97.6 F 75 18 184/86 93 L 12/02/16 07:00 12/02/16 07:00 12/02/16 07:00 12/02/16 07:00 12/02/16 08:21 General appearance: Present: A&O X 3, obese, answers questions appropriately - Respiratory Respiratory exam: Present: CTAB. Absent: accessory muscle use, rales, rhonchi, wheezes - Cardiovascular Cardiovascular exam: Present: RRR, +S1, +S2. Absent: diastolic murmur, gallop, rubs, systolic murmur - GI/Abdominal GI/Abdominal exam: Present: normal bowel sounds, soft (obese, nontender), no peritoneal signs. Absent: distended, tenderness
== END 2016-12-02 10:50 | disposition home or self-care (01) ==
LOC: 3ANU 09:42 → EMEROO 09:42 → SUATTDRO 13:41 → 3ANU 14:03
PROVIDERS: ADMIT Internal Medicine; ATTEND Internal Medicine

== ENCOUNTER 2021-06-11 12:25 | Inpatient (IN) ==
[2021-06-11] MEDS ORDERED: Furosemide 40 MG/4 ML VIAL IVP ONE (14:34)
[2021-06-11 15:27] LABS: Mean Platelet Volume 10.3 fL (9.4-12.4); Segmented Neutrophils % 81.9 %
[2021-06-11 15:28] LABS: Basophils % 0.5 %; Eosinophils # 0.1 K/mcL (0.0-0.6); Eosinophils % 1.4 %; Hematocrit 38.9 % (35.3-44.9); Hemoglobin 11.7 g/dL (11.5-15.4); Immature Granulocytes % 0.5 % (0-4); Lymphocytes # 0.6 K/mcL (0.6-4.6); Lymphocytes % 7.8 %; Mean Corpuscular HGB Conc 30.1 g/dL (31.6-35.5); Mean Corpuscular Hemoglobin 30.5 pg (28.0-33.3); Mean Corpuscular Volume 101.6 fL (83.0-100.0); Monocytes # 0.6 K/mcL (0.0-1.3); Monocytes % 7.9 %; Neutrophils # 6.6 K/mcL (1.6-8.9); Nucleated Red Blood Cells 0.2 /100 WBC (0); Platelet Count 278 K/mcL (140-400); Red Blood Count 3.83 M/mcL (3.82-4.97); Red Cell Distribution Width 17.4 % (11.5-14.5); White Blood Count 8.1 K/mcL (4.3-11.1)
[2021-06-11 15:49] LABS: Albumin 3.7 g/dL (3.5-5.7); Albumin/Globulin Ratio 1.3 (1.1-2.2); Bilirubin,Direct 0.2 mg/dL (0.0-0.2); Bilirubin,Indirect 0.5 mg/dL (0.0-1.0); Bilirubin,Total 0.7 mg/dL (0.3-1.0); Calcium 8.9 mg/dL (8.6-10.3); Globulin 2.9 g/dL (2.4-3.5); Potassium 5.3 mEq/L (3.5-5.1); Total Protein 6.6 g/dL (6.4-8.9)
[2021-06-11 15:57] LABS: Troponin I 0.03 ng/mL (< 0.04)
[2021-06-11 16:04] LABS: Hypochromasia Present (Not Present); Macrocytosis Present (Not Present); Platelet Estimate Normal (Normal)
[2021-06-11 16:44] LABS: INR 3.9; Prothrombin Time 43.2 Seconds (9.4-12.1)
[2021-06-11 16:46] LABS: Activated Partial Thrombo Time 43.9 Seconds (26.0-36.0)
[2021-06-11 18:02] LABS: Bilirubin,Urine Negative (Negative); Blood,Urine Negative (Negative); Clarity,Urine Clear (Clear); Color,Urine Light-Yellow (Yellow); Glucose,Urine (UA) Normal (Normal); Hyaline Casts,Urine Few per lpf (None Seen); Ketones,Urine Negative (Negative); Leukocyte Esterase,Urine Negative (Negative); Nitrite,Urine Negative (Negative); Protein,Urine 100 mg/dL (Neg-Trace); RBC,Urine 0-3 per hpf (0-3); Specific Gravity,Urine 1.012 (1.010-1.025); Squamous Epithelial Cell,Urine Few per hpf (None-Few); Urobilinogen,Urine Normal (Normal); WBC,Urine 0-3 per hpf (0-3)
[2021-06-11] MEDS ORDERED: *HR* Dextrose 50 % in Water (Vial) 50 ML VIAL IVP ONE (19:05)
[2021-06-11] MEDS ORDERED: Calcium Gluconate 1,000 MG/10 ML VIAL IVP STA (19:06)
[2021-06-11] MEDS ORDERED: Insulin LISPRO 300 UNITS/3 ML VIAL SUBQ ONE (19:06)
[2021-06-11] MEDS ORDERED: Albuterol 2.5 MG/3 ML NEBULIZER IH ONE (19:07)
[2021-06-11] MEDS ORDERED: Calcium Gluconate 1gm/50mL BAG IVPB ONE (19:30)
[2021-06-11] MEDS ORDERED: Naloxone 0.4 MG/ML INJ IVP PRN (21:12)
[2021-06-11] MEDS ORDERED: D5% in Water 1,000 ML IVC PRN (21:21)
[2021-06-11] MEDS ORDERED: Dextrose Gel 15 GM/37.5 ML TUBE PO PRN ×2 (21:21)
[2021-06-11] MEDS ORDERED: *HR* Dextrose 50 % in Water (Vial) 50 ML VIAL IVP PRN (21:21)
[2021-06-11] MEDS ORDERED: Gabapentin 300 MG CAPSULE PO PRN (21:58)
[2021-06-11 22:23] LABS: Creatinine,Urine 63 mg/dL
[2021-06-11 22:50] LABS: Calcium 9.1 mg/dL (8.6-10.3)
[2021-06-12] MEDS: Ondansetron 4 MG/2 ML VIAL IVP PRN ×2 (00:20→18:52)
[2021-06-12] MEDS ORDERED: Acetaminophen 325 MG TABLET PO PRN (00:59)
[2021-06-12 01:28] LABS: Basophils # 0.1 K/mcL (0.0-0.2); Basophils % 0.6 %; Eosinophils # 0.1 K/mcL (0.0-0.6); Eosinophils % 1.2 %; Hematocrit 39.2 % (35.3-44.9); Hemoglobin 11.6 g/dL (11.5-15.4); Immature Granulocytes % 0.5 % (0-4); Lymphocytes # 0.6 K/mcL (0.6-4.6); Lymphocytes % 7.4 %; Mean Corpuscular HGB Conc 29.6 g/dL (31.6-35.5); Mean Corpuscular Hemoglobin 29.7 pg (28.0-33.3); Mean Corpuscular Volume 100.5 fL (83.0-100.0); Mean Platelet Volume 10.2 fL (9.4-12.4); Monocytes # 0.7 K/mcL (0.0-1.3); Monocytes % 9.3 %; Neutrophils # 6.3 K/mcL (1.6-8.9); Platelet Count 262 K/mcL (140-400); Red Cell Distribution Width 17.5 % (11.5-14.5); White Blood Count 7.7 K/mcL (4.3-11.1)
[2021-06-12 01:38] LABS: INR 3.8; Prothrombin Time 42.7 Seconds (9.4-12.1)
[2021-06-12 01:47] LABS: Calcium 8.9 mg/dL (8.6-10.3); Magnesium 1.5 mg/dL (1.6-2.6); Potassium 4.9 mEq/L (3.5-5.1)
[2021-06-12] MEDS ORDERED: Albumin 25% 25gram/100mL 25 GM/100 ML IV.SOLN IVPB ONE (07:32)
[2021-06-12] MEDS: Budesonide/Formoterol 160/4.5 1 PUFF INH IH SCH ×2 (07:47→19:31)
[2021-06-12] MEDS: Doxycycline 100 MG CAPSULE PO SCH ×2 (08:10→20:53)
[2021-06-12] MEDS: Metoprolol XL (24 HR) Succ 50 MG TAB.ER.24H PO SCH (08:11)
[2021-06-12] MEDS: Insulin LISPRO 300 UNITS/3 ML VIAL SUBQ SCH ×4 (08:12→20:55)
[2021-06-12] MEDS ORDERED: Gabapentin 300 MG CAPSULE PO SCH (09:00)
[2021-06-12] MEDS ORDERED: Furosemide 40 MG/4 ML VIAL IVP SCH (09:00)
[2021-06-12] MEDS ORDERED: Warfarin perPT PO PRN (18:00)
[2021-06-12] MEDS ORDERED: Furosemide 40 MG/4 ML VIAL IVP ONE (18:28)
[2021-06-13 04:00] LABS: Hematocrit 36.2 % (35.3-44.9); Hemoglobin 10.5 g/dL (11.5-15.4); Mean Corpuscular Hemoglobin 29.1 pg (28.0-33.3); Mean Corpuscular Volume 100.3 fL (83.0-100.0); Mean Platelet Volume 10.4 fL (9.4-12.4); Platelet Count 256 K/mcL (140-400); Red Blood Count 3.61 M/mcL (3.82-4.97); Red Cell Distribution Width 17.6 % (11.5-14.5); White Blood Count 6.7 K/mcL (4.3-11.1)
[2021-06-13 04:06] LABS: INR 3.2; Prothrombin Time 36.3 Seconds (9.4-12.1)
[2021-06-13 04:20] LABS: Calcium 8.3 mg/dL (8.6-10.3); Potassium 5.3 mEq/L (3.5-5.1)
[2021-06-13] MEDS: Budesonide/Formoterol 160/4.5 1 PUFF INH IH SCH ×2 (07:33→20:10)
[2021-06-13] MEDS: Metoprolol XL (24 HR) Succ 50 MG TAB.ER.24H PO SCH (08:38)
[2021-06-13] MEDS: Doxycycline 100 MG CAPSULE PO SCH ×2 (08:38→20:15)
[2021-06-13] MEDS: Insulin LISPRO 300 UNITS/3 ML VIAL SUBQ SCH ×4 (08:38→20:17)
[2021-06-13] MEDS ORDERED: *HR* Warfarin 2 MG TABLET PO ONE (18:00)
[2021-06-13] MEDS: Ondansetron 4 MG/2 ML VIAL IVP PRN (21:14)
[2021-06-14 05:31] LABS: Basophils % 0.4 %; Eosinophils # 0.2 K/mcL (0.0-0.6); Eosinophils % 3.1 %; Hematocrit 35.6 % (35.3-44.9); Immature Granulocytes % 0.3 % (0-4); Lymphocytes # 0.7 K/mcL (0.6-4.6); Lymphocytes % 9.7 %; Mean Corpuscular HGB Conc 30.9 g/dL (31.6-35.5); Mean Corpuscular Hemoglobin 30.3 pg (28.0-33.3); Mean Corpuscular Volume 98.1 fL (83.0-100.0); Mean Platelet Volume 10.4 fL (9.4-12.4); Monocytes # 0.8 K/mcL (0.0-1.3); Monocytes % 11.2 %; Nucleated Red Blood Cells 0.3 /100 WBC (0); Platelet Count 244 K/mcL (140-400); Red Blood Count 3.63 M/mcL (3.82-4.97); Red Cell Distribution Width 17.4 % (11.5-14.5); Segmented Neutrophils % 75.3 %; White Blood Count 6.7 K/mcL (4.3-11.1)
[2021-06-14 05:44] LABS: INR 2.1; Prothrombin Time 23.3 Seconds (9.4-12.1)
[2021-06-14 05:48] LABS: Albumin 3.4 g/dL (3.5-5.7); Albumin/Globulin Ratio 1.3 (1.1-2.2); Bilirubin,Total 0.7 mg/dL (0.3-1.0); Calcium 8.4 mg/dL (8.6-10.3); Globulin 2.7 g/dL (2.4-3.5); Potassium 5.2 mEq/L (3.5-5.1); Total Protein 6.1 g/dL (6.4-8.9)
[2021-06-14] MEDS: Insulin LISPRO 300 UNITS/3 ML VIAL SUBQ SCH ×4 (07:31→20:55)
[2021-06-14] MEDS: Doxycycline 100 MG CAPSULE PO SCH ×2 (07:33→20:55)
[2021-06-14] MEDS: Metoprolol XL (24 HR) Succ 50 MG TAB.ER.24H PO SCH (07:33)
[2021-06-14] MEDS: Ondansetron 4 MG/2 ML VIAL IVP PRN (07:41)
[2021-06-14] MEDS: Budesonide/Formoterol 160/4.5 1 PUFF INH IH SCH ×2 (07:56→19:49)
[2021-06-14] MEDS: polyethylene glycoL 3350 17 GM POWD.PACK PO SCH ×2 (10:46→20:56)
[2021-06-14] MEDS: Sennosides/Docusate Sodium TABLET PO SCH ×2 (10:46→20:56)
[2021-06-14] MEDS: SODIUM ZIRCONIUM CYCLOSILICATE 5 GM POWD.PACK PO SCH (13:48)
[2021-06-14] MEDS: Albumin 25% 25gram/100mL 25 GM/100 ML IV.SOLN IVPB SCH (16:12)
[2021-06-14] MEDS ORDERED: *HR* Warfarin 3 MG TABLET PO ONE (18:00)
[2021-06-15] MEDS: Albumin 25% 25gram/100mL 25 GM/100 ML IV.SOLN IVPB SCH ×4 (00:31→23:48)
[2021-06-15 03:36] LABS: Basophils % 0.6 %; Eosinophils # 0.2 K/mcL (0.0-0.6); Eosinophils % 2.6 %; Hematocrit 35.8 % (35.3-44.9); Hemoglobin 10.6 g/dL (11.5-15.4); Immature Granulocytes % 0.6 % (0-4); Lymphocytes # 0.7 K/mcL (0.6-4.6); Lymphocytes % 9.6 %; Mean Corpuscular HGB Conc 29.6 g/dL (31.6-35.5); Mean Corpuscular Hemoglobin 29.2 pg (28.0-33.3); Mean Corpuscular Volume 98.6 fL (83.0-100.0); Monocytes # 0.7 K/mcL (0.0-1.3); Monocytes % 10.2 %; Neutrophils # 5.2 K/mcL (1.6-8.9); Nucleated Red Blood Cells 0.3 /100 WBC (0); Platelet Count 244 K/mcL (140-400); Red Blood Count 3.63 M/mcL (3.82-4.97); Red Cell Distribution Width 17.4 % (11.5-14.5); Segmented Neutrophils % 76.4 %; White Blood Count 6.9 K/mcL (4.3-11.1)
[2021-06-15 03:54] LABS: INR 1.9
[2021-06-15 03:59] LABS: Calcium 8.4 mg/dL (8.6-10.3); Potassium 5.2 mEq/L (3.5-5.1)
[2021-06-15] MEDS: Budesonide/Formoterol 160/4.5 1 PUFF INH IH SCH ×2 (07:39→20:28)
[2021-06-15] MEDS: Insulin LISPRO 300 UNITS/3 ML VIAL SUBQ SCH ×4 (07:43→22:52)
[2021-06-15] MEDS: SODIUM ZIRCONIUM CYCLOSILICATE 5 GM POWD.PACK PO SCH (08:02)
[2021-06-15] MEDS: Metoprolol XL (24 HR) Succ 50 MG TAB.ER.24H PO SCH (08:02)
[2021-06-15] MEDS: polyethylene glycoL 3350 17 GM POWD.PACK PO SCH ×2 (08:02→20:37)
[2021-06-15] MEDS: Doxycycline 100 MG CAPSULE PO SCH (08:03)
[2021-06-15] MEDS: Sennosides/Docusate Sodium TABLET PO SCH ×2 (08:03→20:37)
[2021-06-15] MEDS ORDERED: *HR* Warfarin 3 MG TABLET PO ONE (18:00)
[2021-06-15] MEDS: Ondansetron 4 MG/2 ML VIAL IVP PRN (20:37)
[2021-06-16 01:47] LABS: Basophils % 0.6 %; Eosinophils # 0.2 K/mcL (0.0-0.6); Eosinophils % 2.1 %; Hematocrit 35.6 % (35.3-44.9); Hemoglobin 10.7 g/dL (11.5-15.4); Immature Granulocytes % 0.4 % (0-4); Lymphocytes # 0.5 K/mcL (0.6-4.6); Lymphocytes % 7.1 %; Mean Corpuscular HGB Conc 30.1 g/dL (31.6-35.5); Mean Corpuscular Hemoglobin 29.4 pg (28.0-33.3); Mean Corpuscular Volume 97.8 fL (83.0-100.0); Mean Platelet Volume 10.3 fL (9.4-12.4); Monocytes # 0.6 K/mcL (0.0-1.3); Monocytes % 8.6 %; Neutrophils # 5.7 K/mcL (1.6-8.9); Platelet Count 262 K/mcL (140-400); Red Blood Count 3.64 M/mcL (3.82-4.97); Red Cell Distribution Width 17.3 % (11.5-14.5); Segmented Neutrophils % 81.2 %; White Blood Count 7.1 K/mcL (4.3-11.1)
[2021-06-16 01:52] LABS: Prothrombin Time 22.9 Seconds (9.4-12.1)
[2021-06-16 02:00] LABS: Albumin 3.9 g/dL (3.5-5.7); Albumin/Globulin Ratio 1.6 (1.1-2.2); Bilirubin,Total 0.8 mg/dL (0.3-1.0); Calcium 8.6 mg/dL (8.6-10.3); Globulin 2.5 g/dL (2.4-3.5); Potassium 5.2 mEq/L (3.5-5.1); Total Protein 6.4 g/dL (6.4-8.9)
[2021-06-16] MEDS: Ondansetron 4 MG/2 ML VIAL IVP PRN (07:01)
[2021-06-16] MEDS: Insulin LISPRO 300 UNITS/3 ML VIAL SUBQ SCH ×4 (07:42→20:04)
[2021-06-16] MEDS: Budesonide/Formoterol 160/4.5 1 PUFF INH IH SCH ×2 (07:51→20:01)
[2021-06-16] MEDS: Albumin 25% 25gram/100mL 25 GM/100 ML IV.SOLN IVPB SCH (07:59)
[2021-06-16] MEDS: polyethylene glycoL 3350 17 GM POWD.PACK PO SCH (08:02)
[2021-06-16] MEDS: Sennosides/Docusate Sodium TABLET PO SCH ×2 (08:02→20:04)
[2021-06-16] MEDS: SODIUM ZIRCONIUM CYCLOSILICATE 5 GM POWD.PACK PO SCH (08:02)
[2021-06-16] MEDS: Metoprolol XL (24 HR) Succ 50 MG TAB.ER.24H PO SCH (08:02)
[2021-06-16] MEDS ORDERED: Furosemide 40 MG/4 ML VIAL IVP ONE (14:22)
[2021-06-16] MEDS ORDERED: *HR* Warfarin 3 MG TABLET PO ONE (18:00)
[2021-06-16 18:43] LABS: Bilirubin,Urine Negative (Negative); Blood,Urine Large (Negative); Clarity,Urine Clear (Clear); Color,Urine Colorless (Yellow); Glucose,Urine (UA) Normal (Normal); Ketones,Urine Negative (Negative); Leukocyte Esterase,Urine Negative (Negative); Mucus,Urine Few per lpf (None-Few); Nitrite,Urine Negative (Negative); Protein,Urine 50 mg/dL (Neg-Trace); RBC,Urine TNTC per hpf (0-3); Specific Gravity,Urine 1.008 (1.010-1.025); Squamous Epithelial Cell,Urine Few per hpf (None-Few); Urobilinogen,Urine Normal (Normal); WBC,Urine 0-3 per hpf (0-3)
[2021-06-17] MEDS: Budesonide/Formoterol 160/4.5 1 PUFF INH IH SCH (07:45)
[2021-06-17 08:04] LABS: Potassium 4.8 mEq/L (3.5-5.1)
[2021-06-17 08:45] LABS: Basophils % 0.2 %; Eosinophils # 0.2 K/mcL (0.0-0.6); Eosinophils % 2.7 %; Hematocrit 36.2 % (35.3-44.9); Hemoglobin 11.4 g/dL (11.5-15.4); Immature Granulocytes % 0.5 % (0-4); Lymphocytes # 0.6 K/mcL (0.6-4.6); Lymphocytes % 7.7 %; Mean Corpuscular HGB Conc 31.5 g/dL (31.6-35.5); Mean Corpuscular Hemoglobin 30.4 pg (28.0-33.3); Mean Corpuscular Volume 96.5 fL (83.0-100.0); Mean Platelet Volume 10.6 fL (9.4-12.4); Monocytes # 0.8 K/mcL (0.0-1.3); Monocytes % 9.6 %; Neutrophils # 6.4 K/mcL (1.6-8.9); Platelet Count 265 K/mcL (140-400); Red Blood Count 3.75 M/mcL (3.82-4.97); Red Cell Distribution Width 17.2 % (11.5-14.5); Segmented Neutrophils % 79.3 %
[2021-06-17 08:46] LABS: Prothrombin Time 22.9 Seconds (9.4-12.1)
[2021-06-17] MEDS: Metoprolol XL (24 HR) Succ 50 MG TAB.ER.24H PO SCH (08:59)
[2021-06-17] MEDS: Sennosides/Docusate Sodium TABLET PO SCH ×2 (08:59→22:07)
[2021-06-17] MEDS: SODIUM ZIRCONIUM CYCLOSILICATE 5 GM POWD.PACK PO SCH (08:59)
[2021-06-17] MEDS: Insulin LISPRO 300 UNITS/3 ML VIAL SUBQ SCH ×4 (09:00→22:48)
[2021-06-17] MEDS ORDERED: Furosemide 40 MG/4 ML VIAL IVP ONE (10:38)
[2021-06-17] MEDS: Ondansetron 4 MG/2 ML VIAL IVP PRN ×2 (15:48→22:07)
[2021-06-17] MEDS ORDERED: *HR* Warfarin 3 MG TABLET PO ONE (18:00)
[2021-06-18 01:20] LABS: Basophils # 0.1 K/mcL (0.0-0.2); Basophils % 0.7 %; Eosinophils # 0.3 K/mcL (0.0-0.6); Hematocrit 37.1 % (35.3-44.9); Hemoglobin 11.2 g/dL (11.5-15.4); Immature Granulocytes % 0.4 % (0-4); Lymphocytes # 0.6 K/mcL (0.6-4.6); Lymphocytes % 6.4 %; Mean Corpuscular HGB Conc 30.2 g/dL (31.6-35.5); Mean Corpuscular Hemoglobin 28.9 pg (28.0-33.3); Mean Corpuscular Volume 95.9 fL (83.0-100.0); Mean Platelet Volume 10.2 fL (9.4-12.4); Monocytes # 0.9 K/mcL (0.0-1.3); Monocytes % 9.4 %; Neutrophils # 7.2 K/mcL (1.6-8.9); Platelet Count 259 K/mcL (140-400); Red Blood Count 3.87 M/mcL (3.82-4.97); Red Cell Distribution Width 17.2 % (11.5-14.5); Segmented Neutrophils % 80.1 %
[2021-06-18] MEDS: Budesonide/Formoterol 160/4.5 1 PUFF INH IH SCH ×3 (01:20→20:21)
[2021-06-18 01:23] LABS: INR 2.4; Prothrombin Time 27.6 Seconds (9.4-12.1)
[2021-06-18 01:38] LABS: Calcium 9.2 mg/dL (8.6-10.3); Potassium 4.8 mEq/L (3.5-5.1)
[2021-06-18] MEDS ORDERED: SODIUM ZIRCONIUM CYCLOSILICATE 5 GM POWD.PACK PO ONE (07:00)
[2021-06-18] MEDS: Insulin LISPRO 300 UNITS/3 ML VIAL SUBQ SCH ×4 (07:57→20:15)
[2021-06-18] MEDS: Sennosides/Docusate Sodium TABLET PO SCH ×2 (08:56→20:06)
[2021-06-18] MEDS: Metoprolol XL (24 HR) Succ 50 MG TAB.ER.24H PO SCH (08:57)
[2021-06-18] MEDS ORDERED: Furosemide 40 MG/4 ML VIAL IVP ONE (10:05)
[2021-06-18] MEDS ORDERED: Albumin 25% 25gram/100mL 25 GM/100 ML IV.SOLN IVPB ONE (10:05)
[2021-06-18] MEDS: Pantoprazole 40 MG VIAL IVP SCH (17:06)
[2021-06-18] MEDS ORDERED: *HR* Warfarin 3 MG TABLET PO ONE (18:00)
[2021-06-19 03:12] LABS: INR 2.3; Prothrombin Time 25.9 Seconds (9.4-12.1)
[2021-06-19 03:26] LABS: Calcium 9.1 mg/dL (8.6-10.3); Potassium 4.5 mEq/L (3.5-5.1)
[2021-06-19] MEDS: Pantoprazole 40 MG VIAL IVP SCH (05:01)
[2021-06-19] MEDS: Insulin LISPRO 300 UNITS/3 ML VIAL SUBQ SCH ×2 (07:28→12:18)
[2021-06-19] MEDS: Metoprolol XL (24 HR) Succ 50 MG TAB.ER.24H PO SCH (07:56)
[2021-06-19] MEDS: Sennosides/Docusate Sodium TABLET PO SCH (07:58)
[2021-06-19] MEDS: Budesonide/Formoterol 160/4.5 1 PUFF INH IH SCH (10:33)
[2021-06-19] MEDS ORDERED: Furosemide 20 MG TABLET PO SCH (11:15)
[2021-06-19] MEDS ORDERED: NIFEdipine XL (24 HR) 30 MG TAB.ER.24 PO SCH (11:15)
[2021-06-19 11:31] LABS: Adenovirus Not Detected (Not Detect); Bordetella Pertussis Not Detected (Not Detect); Chlamydophila pneumoniae Not Detected (Not Detect); Coronavirus 229E Not Detected (Not Detect); Coronavirus HKU1 Not Detected (Not Detect); Coronavirus NL63 Not Detected (Not Detect); Coronavirus OC43 Not Detected (Not Detect); Human Metapneumovirus Not Detected (Not Detect); Human Rhinovirus/Enterovirus Not Detected (Not Detect); Influenza A Subtype 2009 H1 Not Detected (Not Detect); Influenza B Not Detected (Not Detect); Mycoplasma pneumoniae Not Detected (Not Detect); Parainfluenza Virus 1 Not Detected (Not Detect); Parainfluenza Virus 2 Not Detected (Not Detect); Parainfluenza Virus 3 Not Detected (Not Detect); Parainfluenza Virus 4 Not Detected (Not Detect); Respiratory Syncytial Virus Not Detected (Not Detect); SARS-CoV-2 Not Detected (Not Detect)
[2021-06-19 12:20] VITALS: TEMP 97.9; O2SAT 95
[2021-06-19 16:19] VITALS: BP 150/90; PULSE 77
[2021-06-19] MEDS ORDERED: *HR* Warfarin 3 MG TABLET PO ONE (18:00)
[2021-06-20] MEDS ORDERED: hydrALAZINE 25 MG TABLET PO SCH (08:00)
[2021-06-20 09:45] LABS: Beta Globulin (PEP) 0.83 g/dL (0.48-1.10)
[2021-06-20 13:25] LABS: IFE Reflexed NOT DONE
== END 2021-06-19 16:31 | DRG 682 ==
LOC: EMEROOARM 12:25 → 2ANU 12:25 → SUATTDRO 20:06 → 2ANU 21:05 → SUATTDRO 06-13 17:16
PROVIDERS: ADMIT Internal Medicine; ATTEND Family Medicine